=== PATIENT | female | born 1945 | race Caucasian/White ===

== ENCOUNTER 2024-03-18 05:49 | Day surgery (SDC) | payer OTHER ==
[2024-03-17 12:57] VITALS: BP 138/77
[~2024-03-18] VITALS: Ht 152.4 cm; Wt 72.1 kg
[~2024-03-18 05:49] MED LIST: JANUMET 50-1,01 EACH PO; LOSARTAN POTASS50 MG PO
[2024-03-18] MEDS ORDERED: CEFAZOLIN SODIUM 1,000 MG VIAL IV ONE (15:15)
[2024-03-18] MEDS ORDERED: CHLORHEXIDINE GLUCONATE 120 ML BOTTLE TOP ONE (15:30)
== END 2024-03-18 17:45 | disposition home or self-care (01) ==
LOC: CIR.AMB 05:49
PROVIDERS: ATTEND Surgery
DX: C50.411 Malignant neoplasm of upper-outer quadrant of right female breast (principal); R59.0 Localized enlarged lymph nodes; E11.9 Type 2 diabetes mellitus without complications; I10 Essential (primary) hypertension
CPT/HCPCS: 19301; 38525; A9541